=== PATIENT | female | born 1960 | race Caucasian/White ===

== ENCOUNTER 2024-11-09 10:37 | Day surgery (SDC) | payer OTHER ==
[~2024-11-09] VITALS: Ht 170.2 cm; Wt 124.1 kg
[2024-11-09] MEDS ORDERED: ALGAL OMEGA-3200 MG (10:52)
[2024-11-09] MEDS ORDERED: Buspirone HCl15 MG (10:52)
[2024-11-09] MEDS ORDERED: CRANBERRY215 MG (10:52)
[2024-11-09] MEDS ORDERED: ASPI325 (10:52)
[2024-11-09] MEDS ORDERED: LAMO100 (10:52)
[2024-11-09] MEDS ORDERED: METF500 (10:55)
[2024-11-09] MEDS ORDERED: LORA10ER (10:55)
[2024-11-09] MEDS ORDERED: GABA300 (10:55)
[2024-11-09] MEDS ORDERED: ROSUVASTATIN CA20 MG (10:56)
[2024-11-09] MEDS ORDERED: OXYB5ER (10:56)
[2024-11-09] MEDS ORDERED: Milk Thistle175 M1 (10:56)
[2024-11-09] MEDS ORDERED: TRULICITY0.75 MG/01 (10:56)
[2024-11-09] MEDS ORDERED: MAGNESIUM OXID500 MG (10:57)
[2024-11-09] MEDS ORDERED: LEVOTHYROXINE88 MC9 (11:17)
== END 2024-11-09 12:49 | disposition home or self-care (01) ==
LOC: ORSCSDS 10:37
PROVIDERS: Internal Medicine Gastroenterology
PROC: 0DBH8ZX Excision of Cecum, Via Natural or Artificial Opening Endoscopic, Diagnostic (ICD-10-PCS; principal; 2024-11-09 12:15)
PROC: 0DBE8ZX Excision of Large Intestine, Via Natural or Artificial Opening Endoscopic, Diagnostic (ICD-10-PCS; principal; 2024-11-09 12:15)
PROC: 0DB98ZX Excision of Duodenum, Via Natural or Artificial Opening Endoscopic, Diagnostic (ICD-10-PCS; 2024-11-09 12:15)
PROC: 0DB68ZX Excision of Stomach, Via Natural or Artificial Opening Endoscopic, Diagnostic (ICD-10-PCS; 2024-11-09 12:15)
DX: R19.4 Change in bowel habit (principal); K21.9 Gastro-esophageal reflux disease without esophagitis; D12.0 Benign neoplasm of cecum; K57.30 Diverticulosis of large intestine without perforation or abscess without bleeding; K29.70 Gastritis, unspecified, without bleeding; E11.9 Type 2 diabetes mellitus without complications; G47.33 Obstructive sleep apnea (adult) (pediatric); I10 Essential (primary) hypertension; Z79.84 Long term (current) use of oral hypoglycemic drugs; Z79.899 Other long term (current) drug therapy
CPT/HCPCS: 82947; 88305; 88342; J2704; J7120